=== PATIENT | female | born 1955 | race Caucasian/White ===

== ENCOUNTER 2018-08-30 18:47 | Emergency (ER) | payer OTHER, SELFPAY ==
[2018-08-30 18:49] VITALS: BP 167/81; PULSE 68; RESP 15; TEMP 36.7; O2SAT 99; BMI 31.6
[2018-08-30 19:57] VITALS: O2SAT 99
--- NOTE | 2018-08-30 20:01 | CT_ITS ---
STUDY: CT BRAIN WITHOUT CONTRAST REASON FOR EXAM: Female, 63 years old. Fall, LOC. RADIATION DOSAGE (If Supplied By Facility): CTDIvol = ( 44.99 ) mGy, DLP = ( 779.24 ) mGycm TECHNIQUE: Transaxial CT imaging of the brain was performed without administration of intravenous contrast material. Individualized dose optimization techniques were used for this CT. COMPARISON: None. FINDINGS: Normal soft tissue structures. Normal calvarium. Normal size ventricles and extra-axial spaces for the patient's age. Normal white matter tracts of the cerebral hemispheres. Normal basal ganglia and thalami. Normal brainstem. Normal cerebellum. There is no intracranial hemorrhage. There are no findings of an acute ischemic infarction. Normal visualized paranasal sinuses. CT/Brain/Head without Contrast IMPRESSION: Normal unenhanced CT scan of the brain. Electronically Signed: Malaika Reid MD at 20:41 EST Tel , Service support ,
--- NOTE | 2018-08-30 20:01 | CT_ITS ---
STUDY: CT CERVICAL SPINE WITHOUT CONTRAST REASON FOR EXAM: Female, 63 years old. Fell, LOC. RADIATION DOSAGE (If Supplied By Facility): CTDIvol = ( 12.18 ) mGy, DLP = ( 219.99 ) mGycm TECHNIQUE: High resolution transaxial imaging was performed without contrast material. Sagittal and coronal images were reconstructed. Individualized dose optimization techniques were used for this CT. COMPARISON: None FINDINGS: Normal craniovertebral junction. Normal anterior atlantoaxial articulation. Normal odontoid process. Normal cervical lordosis. Normal vertebral bodies and posterior osseous elements. C2-3: Normal endplates. Normal disc height and morphology. Normal central canal and intervertebral neuroforamina. Left facet hypertrophy. C3-4: Normal endplates. Normal disc height and morphology. Normal central canal and intervertebral neuroforamina. Marked left facet hypertrophy. C4-5: Normal endplates. Normal disc height and morphology. Normal central canal and intervertebral neuroforamina. Marked left facet hypertrophy. C5-6: Normal endplates. Normal disc height and morphology. Normal central canal and intervertebral neuroforamina. Moderate right facet hypertrophy. C6-7: Normal endplates. Normal disc height and morphology. Normal central canal and intervertebral neuroforamina. C7-T1: Normal endplates. Normal disc height and morphology. Normal central canal and intervertebral neuroforamina. Normal visualized soft tissue structures. CT/Spine Cervical without Contras IMPRESSION: 1. No evidence of trauma. 2. Mild degenerative changes of the cervical spine. Electronically Signed: Malaika Reid MD at 20:50 EST Tel , Service support ,
[2018-08-30 21:06] VITALS: BP 154/85; PULSE 70; RESP 17; O2SAT 98
--- NOTE | 2018-08-30 21:08 | ED.VISSUMM ---
- ER Visit Summary Date of Service: 08/30/18 Chief Complaint: Head injury History of Present Illness: The patient is a [address] Patino. She reports that today she was tripped by her dog. She fell backwards and hit her head. She had loss of consciousness for a brief period of time. She is amnestic to the events shortly thereafter. Patient reports that she had a nosebleed for approximately 15 minutes from the left. She denies any pain to her nose. She reports she has a headache is 3 out of 10 severity. She denies any face, neck, back, shoulder, wrist, pain. On review of systems she does report that she is nauseated. She has not vomited. Physical Examination: Vitals: Stable. Afebrile. Head: Atraumatic. Nose. No septal hematoma. No blood or clot present in her nares. She has no pain over the bridge of her nose. Neck: Mild tenderness palpation approximately C5-C7. Full ROM without difficulty. Back: No vertebral tenderness. General: A&O x 3. NAD. Cardiovascular exam: Regular rate and rhythm, no murmur, rub or gallop. Respiratory exam: Chest nontender. No crepitus. Clear to auscultation bilaterally. No wheezes or stridor. Abdominal exam: Soft, nontender, nondistended, normal bowel sounds. No pain in RUQ or LUQ specifically. No peritoneal signs. Extremity: Atraumatic. No pain with range of motion. Test Results: CT brain shows no acute disease. No intracranial hemorrhage. CT C-spine shows mild degenerative changes. Emergency Department Course and Treatment: Patient refused pain or nausea medications. She is resting comfortably. Treatment Plan: Patient be discharged with concussion precautions. Instructed to follow-up her primary care physician 1 week for another exam. Return to the emergency department for any worsening symptoms. Disposition: To home in improved and stable condition. Impression: 1. Fall. 2. Concussion. 3. Cervical strain. This note was generated with [employer] dictation software. It may contain incorrect words, spelling, and punctuation that were not noted in review of the chart prior to signing ED Disposition - Plan for ED Patient: Disposition: Home or Assisted Living Instructions: ED Concussion Referrals: Prince Patino MD [Primary Care Provider] - 1 Week
== END 2018-08-30 21:36 | disposition home or self-care (01) ==
LOC: ED 20:24
PROVIDERS: Emergency Provider Emergency Medicine
DX: S06.0X1A Concussion with loss of consciousness of 30 minutes or less, initial encounter (principal); S16.1XXA Strain of muscle, fascia and tendon at neck level, initial encounter; W01.0XXA Fall on same level from slipping, tripping and stumbling without subsequent striking against object, initial encounter; Y93.9 Activity, unspecified; Y92.89 Other specified places as the place of occurrence of the external cause; Y99.9 Unspecified external cause status; I10 Essential (primary) hypertension; E78.00 Pure hypercholesterolemia, unspecified
CPT/HCPCS: 70450; 72125; 99282

== ENCOUNTER 2019-04-18 13:43 | Emergency (ER) | payer OTHER, SELFPAY ==
[2019-04-18 13:44] VITALS: BP 138/55; PULSE 85; RESP 20; TEMP 36.7; O2SAT 97; BMI 33.0
--- NOTE | 2019-04-18 13:59 | EKG12_ITS ---
Test Reason : CP Blood Pressure : / mmHG Vent. Rate : 073 BPM Atrial Rate : 073 BPM P-R Int : 146 ms QRS Dur : 080 ms QT Int : 404 ms P-R-T Axes : 035 053 070 degrees QTc Int : 445 ms Normal sinus rhythm Normal ECG Confirmed by PRASANTH COONEY, FERNANDO ([id number]), editorial assistant BRIDGET GUZMAN ([id number]) on 04/20/2019 8:44:07 AM Referred By: DONALDO Confirmed By:FERNANDO RADER MD
--- NOTE | 2019-04-18 13:59 | RAD_ITS ---
STUDY: X-RAY CHEST REASON FOR EXAM: Female, 64 years old. 2 hour history of left-sided chest pain. TECHNIQUE: Single AP portable view of the chest. COMPARISON: None. FINDINGS: EKG electrodes are seen. Hyperinflation. There is no demonstrated pleural abnormality. There is borderline cardiomegaly. Normal mediastinum and nagi. Normal visualized pulmonary arteries. Normal visualized aortic arch and descending thoracic aorta. There are diffuse degenerative changes of the visualized thoracic spine. There is degenerative osteoarthritis of the bilateral shoulders. There is no demonstrated abnormality of the visualized soft tissue structures of the upper abdomen. RAD/Chest 1 View (Portable) IMPRESSION: Hyperinflation. The lungs are clear. Electronically Signed: Aramis Santiago, at 14:35 EDT , Service support ,
[2019-04-18 14:20] VITALS: BP 129/56; PULSE 67; RESP 18; O2SAT 97
[2019-04-18 14:24] LABS: Absolute Lymphocyte Count 1.43 X10^3/uL (0.83-4.51); Absolute Neutrophil Count 4.8 X10^3/uL (2.0-7.7); Basophil# 0.07 X10^3/uL; Eosinophils% 4.2 % (0-5); Lymphocyte # 1.43 X10^3/ul (4.0); Lymphocyte % 20.3 % (19-41); Mean Corp Hgb Conc 32.5 g/dL (32-36); Mean Corpuscular Volume 92.2 fL (81-99); Mean Platelet Vol. 9.5 fl (6.2-12.0); Monocyte% 5.7 % (0-10); NRBC Flagged by Analyzer 0 % (0-5); Neutrophil # 4.82 X10^3/uL (2.7-7.7); Neutrophil % 68.2 % (47-70); Platelet Count 285 K/mm3 (150-450); RBC Distribution Width SD 40.9 fl (35.1-43.9); Red Blood Count 4.34 M/mm3 (4.2-5.4); White Blood Count 7.1 K/mm3 (4.4-11.0)
--- NOTE | 2019-04-18 14:25 | ED.DCSUM_ITS ---
- ER Visit Summary Date of Service: 04/18/19 Chief Complaint: Chest pain History of Present Illness: The patient is a 64 F who presents with chest pain. Started 2 hours ago. She describes a sharp pain on the left side of her chest. It radiated straight into her back on the left side of her chest. Nitroglycerin and aspirin with EMS made better. Nothing made it worse. She does have associated dyspnea with this. She has a history of mitral valve prolapse and had a stress test 11 years ago and a cardiac catheterization in neither 2002 or 2003 that was clean. Denies any other recent illnesses. Currently her symptoms are improved Physical Examination: Vital signs reviewed. HEENT exam unremarkable. Heart is regular rate and rhythm without murmurs. Lungs are clear to auscultation. Her chest is nontender to palpation. Abdomen is soft and nontender. Extremities reveal no edema. Peripheral pulses are equal. Skin exam normal. Neurologic exam normal. Test Results: Chest x-ray shows hyperinflation. EKG was sinus rhythm with a rate of 73. No ST changes. Laboratory studies are normal. Emergency Department Course and Treatment: Patient was given aspirin and nitroglycerin by EMS. Her troponin is normal. Her chest x-ray and EKG is also unremarkable. I feel this is likely noncardiac. Patient be given a dose of Toradol here. Her MIGUEL score is 0. Patient will be discharged home to use NSAIDs for pain. She will follow-up with her PCP Treatment Plan: [] Disposition: Discharge Impression: Chest pain noncardiac This note was generated with [employer] dictation software. It may contain incorrect words, spelling, and punctuation that were not noted in review of the chart prior to signing ED Disposition - Plan for ED Patient: Referrals: Prince Patino MD [Primary Care Provider] -
[2019-04-18 14:35] LABS: Anion Gap 6 (5-15); BUN 10 mg/dL (7-18); BUN/Creat Ratio 13.9 RATIO (10-20); Calcium,Total 9.1 mg/dL (8.5-10.1); Chloride 108 mmol/L (98-107); Creatinine, Serum 0.72 mg/dL (0.55-1.02); EST Glomerular Filtration Rate 87 mL/min (>60); Est Glom Filt Rate - Afr Amer 106 mL/min (>60); Estimated Creatinine Clearance 94.77 ml/min; Glucose 137 mg/dL (74-106); Sodium Level 140 mmol/L (136-145)
--- NOTE | 2019-04-18 15:10 | ED.DEP ---
ED Disposition - Plan for ED Patient: Disposition: Home or Assisted Living Instructions: CHEST PAIN, Uncertain Cause Prescriptions: Naproxen [Naprosyn] 500 mg PO BID PRN #20 tab Prescription Printed Referrals: Prince Patino MD [Primary Care Provider] -
[2019-04-18] MEDS: Ketorolac 30 MG/ML Syringe IV (16:43)
--- NOTE | 2019-04-18 16:48 | ED.RN ---
pt to remain in the ed while awaiting results of venous doppler. if positive. pt to be transferred.
[2019-04-18 17:23] VITALS: BP 145/60; PULSE 81; RESP 20; O2SAT 97
--- NOTE | 2019-04-18 17:24 | ED.RN ---
THIS NURSE REVIEWED D/C INSTRUCTIONS WITH PT. PT VERBALIZED UNDERSTANDING OF INSTRUCTIONS. IV D/C. IV CATHETER INTACT. PT TOLERATED WELL. PT DENIES FURTHER NEEDS OR QUESTIONS AT THIS TIME. PT AMBULATES FROM ROOM ON OWN WITHOUT ASSISTANCE FROM STAFF
== END 2019-04-18 17:26 | disposition home or self-care (01) ==
PROVIDERS: Emergency Provider Emergency Medicine
DX: R07.89 Other chest pain (principal); R06.00 Dyspnea, unspecified; I34.1 Nonrheumatic mitral (valve) prolapse; I10 Essential (primary) hypertension; E78.00 Pure hypercholesterolemia, unspecified; M81.0 Age-related osteoporosis without current pathological fracture; Z79.899 Other long term (current) drug therapy
CPT/HCPCS: 71045; 80048; 84484; 85025; 93005; 96374; 99285; J7030; A4216

== ENCOUNTER → 2019-04-27 11:01 | Outpatient (CLI) | payer OTHER, SELFPAY ==
[2019-04-18 13:44] VITALS: BMI 33.0
--- NOTE | 2019-04-27 11:04 | CT_ITS ---
STUDY: CT ABDOMEN AND PELVIS WITHOUT CONTRAST REASON FOR EXAM: Female, 64 years old. Gross hematuria. RADIATION DOSAGE (If Supplied By Facility): CTDIvol = ( 10.7 ) mGy, DLP = ( 476.55 ) mGycm TECHNIQUE: Transaxial images were obtained from the dome of the diaphragm to the symphysis pubis without oral contrast, and without intravenous contrast. Sagittal and coronal images were reconstructed. Individualized dose optimization techniques were used for this CT. COMPARISON: None. FINDINGS: The visualized lung bases are unremarkable. The visualized portions of the heart are within normal limits. Normal liver. Normal gallbladder and extrahepatic biliary system. Normal spleen. Normal pancreas. Normal bilateral adrenal glands. There are 3 punctate calcifications in the upper pole calyx of the right kidney. There is a 4 mm calculus in the proximal portion of the left ureter causing a mild degree of left hydronephrosis and hydroureter. Normal visualized stomach. Normal small intestine. There are multiple colonic diverticula consistent with diverticulosis. There is non-visualization of the appendix. There is diffuse atherosclerotic calcification of the abdominal aorta, without a demonstrated aneurysm. Normal inferior vena cava. Normal retroperitoneum. Normal urinary bladder. There is absence of the uterus consistent with a prior hysterectomy. There is a small umbilical hernia containing fat. Normal osseous structures. CT/Abdomen/Pelvis without Cont IMPRESSION: 4 mm calculus in the proximal portion of the left ureter causing mild degree of left hydronephrosis. Electronically Signed: Aramis Santiago, at 12:19 EDT , Service support ,
== END ==
PROVIDERS: Referring Provider Nurse Practitioner Adult Health; Visit Provider Nurse Practitioner Adult Health
DX: R31.0 Gross hematuria (principal); N20.0 Calculus of kidney
CPT/HCPCS: 74176

== ENCOUNTER 2019-05-13 10:23 | Day surgery (SDC) | payer OTHER, SELFPAY ==
--- NOTE | 2019-05-13 09:30 | RAD_ITS ---
STUDY: X-RAY - ABDOMEN/PELVIS REASON FOR EXAM: Female, 64 years old. Bilateral flank pain. History of left kidney stone. TECHNIQUE: Single AP view of the abdomen / pelvis. COMPARISON: None. FINDINGS: I suspect a 3.3 mm calculus in the midportion of the left ureter overlying the transverse processes of the L3 vertebrae. RAD/Abdomen Single View IMPRESSION: I suspect a 3.3 mm calculus in the midportion of the left ureter overlying the transverse processes of the L3 vertebrae. Electronically Signed: Aramis Santiago, at 13:16 EST , Service support ,
[2019-05-13 11:38] VITALS: BP 119/46; PULSE 62; RESP 16; TEMP 36.8; O2SAT 99; BMI 30.3
--- NOTE | 2019-05-13 12:21 | PCM.DC ---
- Discharge Diagnoses Current Active Problems: right kidney stones Reason(s) for Visit for Discharge Instructions: s/p Right ESWL and stent You will use the following diet at home:: No restrictions, Regular Your food should be the consistency of: Regular Discharge Activity: Return to Normal Activity, No Restrictions Suture Line Care: Avoid Pulling/Pushing, Avoid Pinching/Bending Allergies/Adverse Reactions: Allergies latex Allergy (Verified 05/02/19 14:23) Rash Penicillins Allergy (Verified 05/02/19 13:49) Hives Sulfa (Sulfonamide Antibiotics) Allergy (Verified 05/02/19 13:49) Other cefuroxime [From Ceftin] Adverse Reaction (Verified 05/02/19 13:49) Nausea/Vom/Diarrhea levofloxacin Adverse Reaction (Verified 05/13/19 11:30) Pain in joints omeprazole [From Prilosec] Adverse Reaction (Verified 05/02/19 13:50) Diarrhea Medications to take at Discharge Atenolol [Tenormin (beta sydni)] 50 mg PO QHS 08/30/18 Simvastatin 20 mg PO QHS 08/30/18 Acetaminophen [Tylenol Extra Strength] 500 - 1,000 mg PO Q6H PRN PRN 05/02/19 Alendronate Sodium [Fosamax] 70 mg PO QWEEK 05/02/19 Biotin 10,000 mcg PO DAILY 05/02/19 Calcium Carbonate [Tums Ultra Strength] 1 tab PO PRN PRN 05/02/19 Calcium Citrate/Vitamin D3 [Citracal + D Maximum Caplet] 1 ea PO TID 05/02/19 Cholecalciferol (Vitamin D3) [Vitamin D3] 2,000 unit PO DAILY 05/02/19 Cinnamon Bark [Cinnamon] 1,500 mg PO DAILY 05/02/19 DiphenhydrAMINE [Benadryl] 50 mg PO QHS 05/02/19 Docusate Sodium 100 mg PO TID 05/02/19 Esomeprazole Magnesium [Nexium 24Hr] 20 mg PO PRN PRN 05/02/19 Glucosam/Riley-Msm1/C/Domingo/Bosw [Osteo Bi-Flex Caplet] 1 ea PO BID 05/02/19 Hydrochlorothiazide 12.5 mg PO DAILY 05/02/19 Ibuprofen 200 mg PO PRN PRN 05/02/19 Milk Thistle 175 mg PO DAILY 05/02/19 Multivit,Stress Formula/Zinc [Stress Formula with Zinc Tab] 1 ea PO DAILY 05/02/19 Naproxen [Naprosyn] 500 mg PO BID PRN PRN 05/02/19 Simethicone [Gas-X] 125 mg PO PRN PRN 05/02/19 Vitamin D3/Vitamin K2 (Mk4) [K2 Plus D3 Tablet] 1 ea PO DAILY 05/02/19 Cephalexin [Keflex] 500 mg PO Q8 #12 cap 05/13/19 Hydrocodone/Acetaminophen [[place] 5-325 Tablet] 1 ea PO Q4H PRN PRN 5 Days #14 tab 05/13/19 The following prescriptions were given: Cephalexin [Keflex] 500 mg PO Q8 #12 cap Prescription Printed Hydrocodone/Acetaminophen [[place] 5-325 Tablet] 1 ea PO Q4H PRN PRN 5 Days #14 tab PRN Reason: Pain Score 1-10 Prescription Printed Primary Care Physician: Prince Patino MD [Primary Care Provider] - Test Results: Test results from this visit will be discussed in further detail at your follow-up appointment, if applicable. Please Follow Up With: Tena Cheema Dr's PATIENT SUPPORT ASSISTANT When: 10days with NATALIE
[2019-05-13] MEDS: Lactated Ringers 1,000 ML 100 ML IV (12:27)
--- NOTE | 2019-05-13 13:10 | OP.PCM_ITS ---
Report of Operation Date of Procedure: 05/13/19 Pre-Operative Diagnosis: Right kidney stone status post first stage ESWL p resents for second stage treatment Post-Operative Diagnosis: Same Surgery/Procedure Performed:: Right extracorporeal shockwave lithotripsy second stage treatment Description of Surgical Findings:: 64-year-old female with a stone in the right kidney status post stent placement a few weeks ago she underwent shockwave lithotripsy for large stone in the right kidney which broke up fairly well. KUB today demonstrates multiple fragments still in the right kidney and she will need another treatment today so she is going to go second stage shockwave lithotripsy. First stage was fairly successful as multiple stone fragments were broken up the small pieces and working to treat the remaining fragments today as possible she may need more than one treatment remaining. Patient was taken back to the operating room after smooth induction of general anesthesia she was placed supine on the table and then placed supine on the table we then used the lithotripter table to find the stones in the right kidney multiple stones were located in the right kidney the stent was still in place we used fluoroscopy to identify the stone location and then we delivered shockwave lithotripsy the stones at a rate of 90 power up to 7. A total of 3000 shockwaves delivered to multiple stone fragments in the right kidney under fluoroscopic guidance making sure that the stones were the F2 focal point the entire time at the end of the treatment cycle. Patient anesthetic was reversed to take back to PACU in good condition and will see her back in 10 days with a x-ray to see if she needs any more treatment. Type of Anesthesia:: General Drains: stent right side - Admit VTE Documentation VTE Present on Admission: No VTE Mechan Device Prophylaxis: SCD's
[2019-05-13] MEDS: Ciprofloxacin 400 MG/200 ML BAG 200 MG IV (13:17)
--- NOTE | 2019-05-13 14:21 | PCM.OPRPT ---
Report of Operation Date of Procedure: 05/13/19 Pre-Operative Diagnosis: Left proximal ureteral calculi Post-Operative Diagnosis: Same Surgery/Procedure Performed:: Left extracorporeal shockwave lithotripsy Description of Surgical Findings:: 64-year-old female was found to have a stone in the proximal left ureter on CAT scan which was causing pain and hematuria because of this we have elected to treat the stone with shockwave lithotripsy to understands that the possible stone may not break, she may need more than one procedure, she may need a stent. She understands the stone may only partially break and may need more treatments. Patient was taken back to the operating room at the smooth induction of anesthesia she was placed supine on the table we then found the stone under fluoroscopy using the fluoroscope we rotated the fluoroscope around using coagulation technique we identified the stone in the proximal left ureter and then started shockwave lithotripsy. A total of 3000 shockwaves were delivered to the stone at a rate of 90 power from 7 to 9 kV at the end of the treatment cycle the stone to change significantly with fragments spread along the course of the ureter and it broken up very nicely. Decided not to leave the stent she hopefully will pass remaining fragments we will see her back in about 10 days with an x-ray. Type of Anesthesia:: General Drains: none - Admit VTE Documentation VTE Present on Admission: No VTE Mechan Device Prophylaxis: SCD's
[2019-05-13 14:37] VITALS: BP 119/46; BP 144/63; PULSE 69; RESP 16; TEMP 36.1; O2SAT 98
[2019-05-13 14:45] VITALS: BP 119/46; BP 135/58; PULSE 68; RESP 16; O2SAT 98
[2019-05-13 14:54] VITALS: BP 119/46; BP 132/68; PULSE 69; RESP 16; TEMP 36.2; O2SAT 98
[2019-05-13] MEDS: oxyCODONE 5 MG Tablet PO (15:17)
[2019-05-13 16:34] VITALS: BP 119/46; BP 139/57; PULSE 81; RESP 16; TEMP 36.4; O2SAT 100
== END 2019-05-13 16:35 | disposition home or self-care (01) ==
LOC: SDC 10:40 → AC 10:49
PROVIDERS: Referring Provider Urology; Visit Provider Urology
PROC: (CPT 50590; principal; 2019-05-13 12:20)
DX: N20.1 Calculus of ureter (principal); Z87.442 Personal history of urinary calculi; R31.0 Gross hematuria; R10.9 Unspecified abdominal pain; K21.9 Gastro-esophageal reflux disease without esophagitis; I10 Essential (primary) hypertension; Z87.891 Personal history of nicotine dependence
CPT/HCPCS: 00873; 50590; 74018; J7120; J0744; J2405

== ENCOUNTER → 2019-05-23 10:58 | Outpatient (CLI) | payer OTHER, SELFPAY ==
[2019-05-13 11:38] VITALS: BMI 30.3
--- NOTE | 2019-05-23 11:02 | RAD_ITS ---
STUDY: X-RAY - ABDOMEN/PELVIS REASON FOR EXAM: Female, 64 years old. Follow-up of left-sided kidney stones TECHNIQUE: 2 frontal views of the abdomen were performed COMPARISON: 13 May 2019 FINDINGS: Normal visualized lung bases. There is an unremarkable bowel gas pattern. There is no demonstrated free abdominal air. The visualized liver, spleen and kidneys are grossly normal in size and morphology. Normal soft tissue structures. Normal visualized osseous structures. RAD/Abdomen Single View IMPRESSION: Unremarkable abdomen. Nonvisualization of the left calculus, this is as of unclear significance, either passed calculus or technical nonvisualization. Electronically Signed: Josh Naik, at 19:21 EST Tel , Service support ,
== END ==
PROVIDERS: Referring Provider Nurse Practitioner Adult Health; Visit Provider Nurse Practitioner Adult Health
DX: N20.0 Calculus of kidney (principal)
CPT/HCPCS: 74018

== ENCOUNTER → 2020-05-14 15:40 | Outpatient (CLI) | payer OTHER, SELFPAY | PROVIDERS: Referring Provider Nurse Practitioner Adult Health; Visit Provider Nurse Practitioner Adult Health | DX: N20.0 Calculus of kidney (principal) ==

== ENCOUNTER → 2020-05-15 16:09 | Outpatient (CLI) | payer OTHER, SELFPAY ==
--- NOTE | 2020-05-15 16:14 | RAD_ITS ---
STUDY: X-RAY - ABDOMEN/PELVIS REASON FOR EXAM: Female, 65 years old. RIGHT SIDE KIDNEY STONE CHECK UP TECHNIQUE: Single AP view of the abdomen / pelvis. COMPARISON: 05/23/2019 FINDINGS: Normal visualized lung bases. There is an unremarkable bowel gas pattern. The visualized liver, spleen and kidneys are grossly normal in size and morphology. Normal soft tissue structures. Normal visualized osseous structures. RAD/Abdomen Single View IMPRESSION: Normal x-ray examination of the abdomen and pelvis. Electronically Signed: Dustin Pedersen MD at 16:30 EST Tel , Service support ,
== END ==
PROVIDERS: Referring Provider Nurse Practitioner Adult Health; Visit Provider Nurse Practitioner Adult Health
DX: N20.0 Calculus of kidney (principal)
CPT/HCPCS: 74018

== ENCOUNTER → 2020-07-27 11:14 | Outpatient (CLI) | payer OTHER, SELFPAY ==
--- NOTE | 2020-07-27 11:31 | RAD_ITS ---
STUDY: X-RAY - RIGHT FOOT CLINICAL: Female, 65 years old. right foot pain, swollen all over x 2 days, worse yesterday -- on and off pain x 2 days TECHNIQUE: 3 view(s) of the foot. COMPARISON: None. FINDINGS: No acute fracture, dislocation or osseous destruction. Osteopenia. Mild multiregional joint space narrowing terminating at the distal interphalangeal joints and first metatarsophalangeal joint. Plantar spur. Achilles enthesophyte. Mild dorsal spurring. Small periarticular calcifications adjacent the first and third metatarsophalangeal joints. Diffuse soft tissue swelling. RAD/Foot min 3 Views IMPRESSION: Right foot acutely intact Degenerative changes, as above Diffuse soft tissue swelling Electronically Signed: Lee Valerio DO at 11:56 EST Tel , Service support ,
[2020-07-27 11:38] LABS: Absolute Lymphocyte Count 1.44 X10^3/uL (0.83-4.51); Basophil# 0.06 X10^3/uL; Eosinophil# 0.28 X10^3/uL; Eosinophils% 4.5 % (0-5); Hematocrit 42.7 % (37-47); Hemoglobin 13.2 g/dL (12.0-15.0); Lymphocyte # 1.44 X10^3/ul (4.0); Mean Corp Hgb Conc 30.9 g/dL (32-36); Mean Corpuscular Hgb 28.4 pg (27.0-32.0); Mean Platelet Vol. 9.6 fl (6.2-12.0); Monocyte# 0.45 X10^3/uL; Monocyte% 7.2 % (0-10); NRBC Flagged by Analyzer 0 % (0-5); Neutrophil # 4.02 X10^3/uL (2.7-7.7); Platelet Count 307 K/mm3 (150-450); RBC Distribution Width CV 12.2 % (11.6-14.6); RBC Distribution Width SD 41.1 fl (35.1-43.9); Red Blood Count 4.64 M/mm3 (4.2-5.4); White Blood Count 6.3 K/mm3 (4.4-11.0)
== END ==
PROVIDERS: PCP Nurse Practitioner Family; Referring Provider Nurse Practitioner Family; Visit Provider Nurse Practitioner Family
DX: M79.671 Pain in right foot (principal)
CPT/HCPCS: 36415; 73630; 85025

== ENCOUNTER → 2020-08-09 13:01 | Outpatient (CLI) | payer OTHER, SELFPAY ==
--- NOTE | 2020-08-09 13:09 | RAD_ITS ---
STUDY: X-RAY - PELVIS AND LEFT HIP REASON FOR EXAM: Female, 65 years old. HIP PAIN -- FELL IN MAY TECHNIQUE: 3 views of the pelvis and hip. COMPARISON: None. FINDINGS: There is a non-specific bowel gas pattern. Normal visualized soft tissue structures. Normal bilateral iliac wings, sacroiliac joints and visualized sacrum. Normal bilateral superior and inferior pubic rami. Normal pubic symphysis. Normal bilateral ischial tuberosities. Normal visualized femoral head. Normal acetabulum. Normal hip joint. RAD/HIP, UNI W/ Pelvis 2-3 Views IMPRESSION: Normal x-ray examination of the pelvis and hip. Electronically Signed: Dustin Pedersen MD at 6:49 EST Tel , Service support ,
--- NOTE | 2020-08-09 13:17 | RAD_ITS ---
STUDY: X-RAY - RIGHT KNEE REASON FOR EXAM: Female, 65 years old. Chronic knee pain and swelling. TECHNIQUE: 3 view(s) of the knee. COMPARISON: None. FINDINGS: Generalized osteopenia. Normal visualized distal femur. Normal visualized proximal tibia and fibula. Normal proximal tibiofibular articulation. Mild arthrosis of the medial compartment. Mild arthrosis of the lateral femorotibial compartment with osteophyte formation. Mild arthrosis of the patellofemoral compartment. The soft tissue structures are unremarkable. RAD/Knee 3 Views IMPRESSION: Osteopenia with tricompartmental arthrosis. No acute finding. Electronically Signed: Max Tracey MD at 16:16 EST , Service support ,
--- NOTE | 2020-08-09 13:27 | VDLE_ITS ---
Reason For Study: Edema RIGHT GSV is normal. CFV is compressible, spontaneous, phasic, competent and demonstrates normal augmentation. FV is compressible, spontaneous, phasic, competent and demonstrates normal augmentation. POP V is compressible, spontaneous, phasic, competent and demonstrates normal augmentation. T/P Trunk is compressible. PTV is compressible. RT PerV is compressible. Procedure This is a venous duplex using B-mode, color flow and spectral Doppler. Exam performed in department. A preliminary report was called and/or faxed to Daryn. Interpretation Summary Deep veins of the right lower extremity are patent and compressible segmentally. There is no evidence of right lower extremity deep vein thrombosis. Valvular competence appears intact within the proximal deep venous system on the right . The right great saphenous vein appears patent and compressible segmentally. Ordering Physician: Thomas Stearns Referring Physician: Thomas Stearns Performed By: Pam Red RVT
== END ==
PROVIDERS: PCP Nurse Practitioner Family; Referring Provider Nurse Practitioner Family; Visit Provider Nurse Practitioner Family
DX: R60.0 Localized edema (principal); M25.561 Pain in right knee; G89.29 Other chronic pain; M25.552 Pain in left hip
CPT/HCPCS: 73502; 73562; 93971

== ENCOUNTER → 2020-09-06 16:45 | Outpatient (CLI) | payer OTHER, SELFPAY ==
--- NOTE | 2020-09-06 17:13 | MRI_ITS ---
STUDY: MRI RIGHT MIDFOOT REASON FOR EXAM: Right foot and ankle pain since 07/24/2020, swelling, no specific injury. TECHNIQUE: Standardized fat and water weighted pulse sequences were obtained in all 3 orthogonal planes. COMPARISON: Radiographs 07/27/2020. FINDINGS: Normal talonavicular articulation. Normal calcaneocuboid articulation. Normal navicular-cuneiform articulations. Normal intercuneiform articulations. Normal first tarsometatarsal articulation. Normal Lisfranc ligament. Normal second and third tarsometatarsal articulations. Normal cuboid fourth and cuboid fifth tarsometatarsal articulation. Normal first through fifth metatarsi. There is arthrosis of the first metatarsophalangeal joint with small marginal osteophytes and chondral thinning (T1 sagittal image 21). There is a subchondral cyst in the lateral aspect of the second metacarpal head. Normal third through fifth metatarsophalangeal joints. Normal tibialis anterior tendon. Normal extensor hallucis longus tendon. Normal extensor digitorum longus tendons. Normal peroneus longus tendon and distal insertion. Normal peroneus brevis tendon and distal insertion. Normal intrinsic muscles of the mid and forefoot region. Normal extensor digitorum brevis muscle. There is edema in the dorsal and medial subcutis adipose space. There is an intermetatarsal neuroma of the second webspace (T1 series 5 image 32) measuring 0.4 cm in transverse dimension. MRI/Lower Ext/No Jt/w/o IMPRESSION: Arthrosis of the first metatarsophalangeal joint. Intermetatarsal neuroma of the second webspace. Edema in the subcutis adipose space. Electronically Signed: Seferino Lester MD at 11:27 EST Tel , Service support ,
== END ==
PROVIDERS: PCP Nurse Practitioner Family; Referring Provider Podiatrist Foot & Ankle Surgery; Visit Provider Podiatrist Foot & Ankle Surgery
DX: M25.571 Pain in right ankle and joints of right foot (principal)
CPT/HCPCS: 73718

== ENCOUNTER 2021-03-04 02:51 | Observation (INO) | payer OTHER, SELFPAY ==
[2021-03-04] VITALS (11 sets, daily range): BP systolic 107–157; BP diastolic 47–83; PULSE 74–107; RESP 15–20; TEMP 36.3–37; O2SAT 93–100; BMI 32.3
--- NOTE | 2021-03-04 02:57 | CT_ITS ---
We are attempting to reach an attending provider to discuss findings. An addendum with communication details will be sent when the communication is complete. HISTORY: Abdominal pain, history of kidney stones EXAMINATION: CT Abdomen And Pelvis W/O Contrast Injection TECHNIQUE: Helically acquired images were obtained of the abdomen and pelvis without oral or IV contrast. A radiation dose optimization technique was used for this scan. IV Contrast dosage and agent: None. Oral contrast: None. COMPARISON: Unenhanced CT abdomen and pelvis from 04/27/19 FINDINGS: LOWER CHEST: Minimal basilar atelectatic changes. Punctate calcified granuloma lateral right lung base. Small hiatal hernia. Heart normal size. LIVER: Stable small low-attenuation cyst within posterior right lobe of liver. GALLBLADDER AND BILIARY TREE: No calcified gallstones. No pericholecystic edema detected. No significant biliary ductal dilation. KIDNEYS AND URETERS: There are a few small right renal calyceal stones measuring up to 3 mm diameter. No ureteral stones identified. No hydroureteronephrosis. Mild chronic-appearing bilateral perinephric fat stranding. ADRENAL GLANDS: Non-enlarged. SPLEEN: Normal size without discrete mass. PANCREAS: No discrete mass or peripancreatic inflammation. BOWEL: Dilated and inflamed appendix is posterior to the cecum within right iliac fossa, measuring up to 15 mm diameter. There are calcified appendicoliths within proximal appendiceal lumen, largest measuring 9 mm diameter. No bowel obstruction. LYMPH NODES: No enlarged mesenteric or retroperitoneal lymph nodes. PERITONEUM: No free air or significant free fluid. No other fluid collection. VESSELS: Atherosclerotic calcifications with no abdominal aortic aneurysm. URINARY BLADDER: Unremarkable. REPRODUCTIVE ORGANS: Status post partial hysterectomy. No pelvic mass. ABDOMINAL WALL: No acute findings or significant hernia defect. BONES: Intact with no suspicious osseous lesion. CT/Abdomen/Pelvis without Cont IMPRESSION: 1. Appendicitis with no evidence of perforation. 2. Nonobstructing right nephrolithiasis. 3. Small hiatal hernia and other nonurgent findings within body of report. Individualized dose optimization techniques were used for this CT. at 0405 Reported and signed by: Scot Abdul MD Electronically Signed: Scot Abdul MD at 4:04 EDT Tel , Service support ,
--- NOTE | 2021-03-04 03:00 | EX.ED.DYSGE1 ---
HPI History of Present Illness Chief Complaint: Abd Pain Narrative Narrative: Patient presents with epigastric and periumbilical pain that started about 10 hours ago. She has also had 3-4 episodes of watery stool for the past month, this started after your antibiotic use. She has no fever or chills she has no lower abdominal pain. She has no back pain or tearing sensation. No urinary symptoms. No chest pain or shortness of breath. [facility] Medical History (Updated 03/04/21 @ 04:[address] Kory Alvarez MD) HTN (hypertension) Hyperlipemia Leaky heart valve Home Medications atenolol 50 mg PO QHS 08/30/18 [History Last Taken Unknown] simvastatin 20 mg PO QHS 08/30/18 [History Last Taken Unknown] acetaminophen 500 - 1,000 mg PO Q6H PRN PRN 05/02/19 [History Last Taken Unknown] alendronate 70 mg PO QWEEK 05/02/19 [History Last Taken Unknown] biotin 10,000 mcg PO DAILY 05/02/19 [History Last Taken Unknown] calcium carbonate 1 tab PO PRN PRN 05/02/19 [History Last Taken Unknown] calcium citrate-vitamin D3 1 ea PO TID 05/02/19 [History Last Taken Unknown] cholecalciferol (vitamin D3) 2,000 unit PO DAILY 05/02/19 [History Last Taken Unknown] cinnamon bark 1,500 mg PO DAILY 05/02/19 [History Last Taken Unknown] diphenhydramine HCl 50 mg PO QHS 05/02/19 [History Last Taken Unknown] docusate sodium 100 mg PO TID 05/02/19 [History Last Taken Unknown] esomeprazole magnesium 20 mg PO PRN PRN 05/02/19 [History Last Taken 05/13/19 07:30] shrlkwob-oyjd-qdk7-C-janis-bosw 1 ea PO BID 05/02/19 [History Last Taken Unknown] hydrochlorothiazide 12.5 mg PO DAILY 05/02/19 [History Last Taken Unknown] ibuprofen 200 mg PO PRN PRN 05/02/19 [History Last Taken Unknown] milk thistle 175 mg PO DAILY 05/02/19 [History Last Taken Unknown] multivit,stress formula-zinc 1 ea PO DAILY 05/02/19 [History Last Taken Unknown] simethicone 250 mg PO PRN PRN 05/02/19 [History Last Taken Unknown] vitamin D3-vitamin K2 (MK4) 1 ea PO DAILY 05/02/19 [History Last Taken Unknown] Allergy/AdvReac Type Severity Reaction Status Date / Time latex Allergy Rash Verified 03/04/21 02:52 Penicillins Allergy Hives Verified 03/04/21 02:52 Sulfa (Sulfonamide Allergy Other Verified 03/04/21 02:52 Antibiotics) cefuroxime [From Ceftin] AdvReac Nausea/Vom/ Verified 03/04/21 02:52 Diarrhea levofloxacin AdvReac Pain in Verified 03/04/21 02:52 joints omeprazole [From Prilosec] AdvReac Diarrhea Verified 03/04/21 02:52 Surgical History (Updated 03/04/21 @ 02:57 by Christiano Kaminski) S/P hysterectomy Social History Smoking Status: Former smoker ROS ROS ED ROS Narrative Past medical history: Reviewed, significant for hypertension, hypercholesterolemia, William's Medications: Reviewed Social history: Noncontributory Review of systems: All systems negative except as indicated General: No fever Eyes: No visual changes ENT: No upper airway congestion, normal voice Neck: No neck pain Cardiovascular: No chest pain Respiratory: No shortness of breath or cough Gastrointestinal: Acute abdominal pain with chronic diarrhea as in HPI Genitourinary: No dysuria Musculoskeletal: Denies myalgias no difficulty with ambulation Skin: No rash Neurological: No memory loss, confusion or any focal weakness Psych: No recent behavioral changes Hematologic: No easy bleeding or easy bruising EXAM Physical Exam Narrative Exam Narrative: Physical exam General: Patient appears relatively comfortable. Head: Normocephalic, Atraumatic Eyes: Conjunctiva not pale ENT: Moist mucous membranes Neck: Supple, Nontender, No lymphadenopathy Cardiovascular: Regular rate, Regular rhythm Respiratory: No distress, CTA bilaterally Abdomen: Soft, there is epigastric pain but also some periumbilical pain no specific pain in the right upper quadrant and Ruiz's is negative. There is some nonspecific lower abdominal pain it is not specifically at McBurney's.. No guarding or rebound. Back: Nontender, Normal Inspection. Negative for: CVA tenderness Extremities: Nontender, No edema Skin: Normal color, No rash Neurological: Alert, Normal Strength, Normal Sensation Psychological: Normal affect Const Vital Signs: 03/04/21 02:52 Temperature 97.6 F L Temperature Source Oral Pulse Rate 84 Respiratory Rate 20 H Blood Pressure 157/53 H Blood Pressure Mean 87 Pulse Ox 98 Oxygen Delivery Method Room Air MDM MDM MDM Narrative Medical decision making narrative: Patient is found to have leukocytosis and appendicitis on CT, on reevaluation her pain did migrate to the right lower abdomen but it did improve with analgesics. I will start her antibiotics and call surgery. Lab Data Labs: Laboratory Results - last 24 hr 03/04/21 03/04/21 03:11 03:11 WBC 14.2 H RBC 4.37 Hgb 13.0 Hct 39.3 MCV 89.9 MCH 29.7 MCHC 33.1 RDW Std Deviation 41.0 RDW Coeff of Suzanne 12.4 Plt Count 327 MPV 9.7 Immature Gran % (Auto) 0.600 Neut % (Auto) 90.9 H Lymph % (Auto) 5.6 L [place] % (Auto) 2.4 Eos % (Auto) 0.1 Baso % (Auto) 0.4 Absolute Neuts (auto) 13.0 H Absolute Lymphs (auto) 0.79 L Nucleated RBC % 0 Sodium 136 Potassium 3.6 Chloride 100 Carbon Dioxide 26.0 Anion Gap 10 BUN 13 Creatinine 0.70 Estim Creat Clear Calc 92.93 Est GFR (MDRD) Af Amer 108 Est GFR (MDRD) Non-Af 89 BUN/Creatinine Ratio 18.5 Glucose 166 H Calcium 9.1 Total Bilirubin 0.50 AST 17 ALT 24 Alkaline Phosphatase 138 H Total Protein 7.5 Albumin 4.2 Globulin 3.3 Albumin/Globulin Ratio 1.3 Lipase 79 Radiography Diagnostic Testing: Radiology Impression Abdomen/Pelvis CT 03/04/21 02:57 IMPRESSION: 1. Appendicitis with no evidence of perforation. 2. Nonobstructing right nephrolithiasis. 3. Small hiatal hernia and other nonurgent findings within body of report. Individualized dose optimization techniques were used for this CT. at 0405 Reported and signed by: Scot Abdul MD Electronically Signed: Scot Abdul MD at 4:04 EDT Tel , Service support , Discharge Plan Triage Chief Complaint: Abd Pain ED Provider: Kory Alvarez Dx/Rx/DC Orders Clinical Impression: Acute appendicitis Prescriptions: No Action simvastatin 20 MG tablet 20 mg PO QHS RF: 0 atenolol 50 MG tablet 50 mg PO QHS RF: 0 milk thistle 500 MG capsule 175 mg PO DAILY RF: 0 alendronate 70 MG tablet 70 mg PO QWEEK RF: 0 simethicone 125 MG capsule 250 mg PO PRN PRN (Reason: reflux) RF: 0 acetaminophen 500 MG tablet 500 - 1,000 mg PO Q6H PRN PRN (Reason: Pain Or Fever) RF: 0 biotin 10,000 MCG capsule 10,000 mcg PO DAILY RF: 0 diphenhydramine HCl 25 MG capsule 50 mg PO QHS RF: 0 ibuprofen 200 MG tablet 200 mg PO PRN PRN (Reason: Pain Or Fever) RF: 0 docusate sodium 100 MG capsule 100 mg PO TID RF: 0 esomeprazole magnesium 20 MG capsule,delayed release(DR/EC) 20 mg PO PRN PRN (Reason: reflux) RF: 0 cinnamon bark 500 MG capsule 1,500 mg PO DAILY RF: 0 calcium carbonate 1,177 MG tablet,chewable 1 tab PO PRN PRN (Reason: reflux) RF: 0 hydrochlorothiazide 12.5 MG tablet 12.5 mg PO DAILY RF: 0 cholecalciferol (vitamin D3) 2,000 UNIT capsule 2,000 unit PO DAILY RF: 0 calcium citrate-vitamin D3 1 EACH tablet 1 ea PO TID RF: 0 multivit,stress formula-zinc 1 EACH tablet 1 ea PO DAILY RF: 0 keycstat-xhdh-yvx9-C-janis-bosw 1 EACH tablet 1 ea PO BID RF: 0 vitamin D3-vitamin K2 (MK4) 1 EACH tablet 1 ea PO DAILY RF: 0 Primary Care Provider: Thomas Stearns NP Referrals: Thomas Stearns [employer], [employer]-C [Primary Care Provider] - 2 Days Disposition Disposition: Acute Care [facility]
[2021-03-04] MEDS: Morphine 4 MG/ML Syringe IV ×2 (03:10→04:35)
[2021-03-04] MEDS: 0.9% Normal Saline 1,000 ML 1000 ML IV (03:10)
[2021-03-04] MEDS: Ondansetron 4 MG/2 ML Vial IV ×2 (03:10→04:27)
[2021-03-04 03:32] LABS: ALB/GLOB Ratio 1.3 RATIO (0.9-2.4); AST(SGOT) 17 U/L (15-37); Alanine Aminotransfer ALT/SGPT 24 U/L (13-56); Albumin, Serum 4.2 g/dL (3.2-5.0); Alkaline Phosphatase 138 U/L (45-117); Anion Gap 10 (5-15); BUN 13 mg/dL (7-18); BUN/Creat Ratio 18.5 RATIO (10-20); Calcium,Total 9.1 mg/dL (8.5-10.1); Chloride 100 mmol/L (98-107); EST Glomerular Filtration Rate 89 mL/min (>60); Est Glom Filt Rate - Afr Amer 108 mL/min (>60); Estimated Creatinine Clearance 92.93 ml/min; Globulin 3.3 g/dL (2.2-4.2); Glucose 166 mg/dL (74-106); Lipase 79 U/L (73-393); Potassium 3.6 mmol/L (3.5-5.1); Protein, Total 7.5 g/dL (6.4-8.2); Sodium Level 136 mmol/L (136-145)
[2021-03-04 03:44] LABS: Absolute Lymphocyte Count 0.79 X10^3/uL (0.83-4.51); Basophil# 0.05 X10^3/uL; Basophil% 0.4 % (0-1); Eosinophil# 0.01 X10^3/uL; Eosinophils% 0.1 % (0-5); Hematocrit 39.3 % (37-47); Lymphocyte # 0.79 X10^3/ul (0.83-4.51); Lymphocyte % 5.6 % (19-41); Mean Corp Hgb Conc 33.1 g/dL (32-36); Mean Corpuscular Hgb 29.7 pg (27.0-32.0); Mean Corpuscular Volume 89.9 fL (81-99); Mean Platelet Vol. 9.7 fl (6.2-12.0); Monocyte# 0.34 X10^3/uL; Monocyte% 2.4 % (0-10); NRBC Flagged by Analyzer 0 % (0-5); Neutrophil # 12.96 X10^3/uL (2.7-7.7); Neutrophil % 90.9 % (47-70); Platelet Count 327 K/mm3 (150-450); RBC Distribution Width CV 12.4 % (11.6-14.6); Red Blood Count 4.37 M/mm3 (4.2-5.4); White Blood Count 14.2 K/mm3 (4.4-11.0)
--- NOTE | 2021-03-04 04:24 | EKG12_ITS ---
Test Reason : DYSRYTHMIA Blood Pressure : / mmHG Vent. Rate : 075 BPM Atrial Rate : 075 BPM P-R Int : 162 ms QRS Dur : 084 ms QT Int : 404 ms P-R-T Axes : 057 055 070 degrees QTc Int : 451 ms Normal sinus rhythm Nonspecific ST and T wave abnormality Abnormal ECG Confirmed by ZENY COONEY, SRINIVASAN ([id number]), newspaper or periodical editor EZIO CONWAY ([id number]) on 03/05/2021 9:33:39 AM Referred By: Alma Delia Lake Confirmed By:SRINIVASAN MOURA MD
[2021-03-04 04:49] LABS: Mucous, Urine 0 SEEN /hpf (<or=2+); Red Blood Cells-Urine 0 SEEN /hpf (0-5)
[2021-03-04] MEDS: Ciprofloxacin 400 MG/200 ML BAG 200 MG IV (04:50)
[2021-03-04] MEDS: metroNIDAZOLE 500 MG/100 ML BAG 100 MG IV (04:56)
[2021-03-04 05:01] LABS: Color, Urine Yellow (Yellow); Glucose, Dipstick Normal (Normal); Leukocyte Esterase-Dipstick Negative /ul (Negative); Nitrite-Dipstick Negative (Negative); Occult Blood-Urine Negative /ul (Negative); Protein-Dipstick 30 mg/dl (Negative); Urine Bilirubin Dipstick Negative (Negative); Urine Clarity Clear (Clear); Urine Urobilinogen Normal (Normal)
--- NOTE | 2021-03-04 05:02 | HP.PCM.SX_ITS ---
HPI - General HPI Narrative CANDIS HERNANDEZ, is a 66 F who presents to the ER due to abdominal pain which did just moved to the right lower quadrant this morning. Patient's abdominal pain has been there since yesterday a.m. on work-up patient's white blood count 14.2, CT abdomen pelvis is consistent with acute appendicitis. Patient did admit to nausea and vomiting as well as anorexia. Patient states she had a colonoscopy about 10 years ago showed lymphocytic colitis which the diarrhea had improved since then but patient currently does have some diarrhea with this episode. [facility] Medical History (Updated 03/04/21 @ 04:[address] Kory Ovalle MD) HTN (hypertension) Hyperlipemia Leaky heart valve Home Medications atenolol 50 mg PO QHS 08/30/18 [History Last Taken Unknown] simvastatin 20 mg PO QHS 08/30/18 [History Last Taken Unknown] acetaminophen 500 - 1,000 mg PO Q6H PRN PRN 05/02/19 [History Last Taken Unknown] alendronate 70 mg PO QWEEK 05/02/19 [History Last Taken Unknown] biotin 10,000 mcg PO DAILY 05/02/19 [History Last Taken Unknown] calcium carbonate 1 tab PO PRN PRN 05/02/19 [History Last Taken Unknown] calcium citrate-vitamin D3 1 ea PO TID 05/02/19 [History Last Taken Unknown] cholecalciferol (vitamin D3) 2,000 unit PO DAILY 05/02/19 [History Last Taken Unknown] cinnamon bark 1,500 mg PO DAILY 05/02/19 [History Last Taken Unknown] diphenhydramine HCl 50 mg PO QHS 05/02/19 [History Last Taken Unknown] docusate sodium 100 mg PO TID 05/02/19 [History Last Taken Unknown] esomeprazole magnesium 20 mg PO PRN PRN 05/02/19 [History Last Taken 05/13/19 07:30] dhgfxuis-eljq-rly7-C-janis-bosw 1 ea PO BID 05/02/19 [History Last Taken Unknown] hydrochlorothiazide 12.5 mg PO DAILY 05/02/19 [History Last Taken Unknown] ibuprofen 200 mg PO PRN PRN 05/02/19 [History Last Taken Unknown] milk thistle 175 mg PO DAILY 05/02/19 [History Last Taken Unknown] multivit,stress formula-zinc 1 ea PO DAILY 05/02/19 [History Last Taken Unknown] simethicone 250 mg PO PRN PRN 05/02/19 [History Last Taken Unknown] vitamin D3-vitamin K2 (MK4) 1 ea PO DAILY 05/02/19 [History Last Taken Unknown] Allergy/AdvReac Type Severity Reaction Status Date / Time latex Allergy Rash Verified 03/04/21 02:52 Penicillins Allergy Hives Verified 03/04/21 02:52 Sulfa (Sulfonamide Allergy Other Verified 03/04/21 02:52 Antibiotics) cefuroxime [From Ceftin] AdvReac Nausea/Vom/ Verified 03/04/21 02:52 Diarrhea levofloxacin AdvReac Pain in Verified 03/04/21 02:52 joints omeprazole [From Prilosec] AdvReac Diarrhea Verified 03/04/21 02:52 Surgical History (Updated 03/04/21 @ 02:57 by Christiano Kaminski) S/P hysterectomy Social History Smoking Status: Former smoker Vital Signs Vital Signs Vital Signs: 03/04/21 02:52 Temperature 97.6 F L Temperature Source Oral Pulse Rate 84 Respiratory Rate 20 H Blood Pressure 157/53 H Blood Pressure Mean 87 Pulse Ox 98 Oxygen Delivery Method Room Air Weight Weight: 159 lb 13.362 oz Body Mass Index (BMI) 32.3 Physical Exam Const alert, oriented x3 and no apparent distress HEENT normocephalic and head/scalp atraumatic Resp normal respiratory effort Cardio regular rate GI soft to palpation; Negative for non-distended Palpation: tender RLQ; Negative for guarding Extremity no clubbing, cyanosis or edema Neuro CN's II-XII intact bilaterally Psych mental status grossly normal Results Lab / Micro Data Result Diagrams: 03/04/21 03:11 03/04/21 03:11 Labs: Laboratory Results - last 24 hr 03/04/21 03:11: WBC 14.2 H, RBC 4.37, Hgb 13.0, Hct 39.3, MCV 89.9, MCH 29.7, MCHC 33.1, RDW Std Deviation 41.0, RDW Coeff of Suzanne 12.4, Plt Count 327, MPV 9.7, Immature Gran % (Auto) 0.600, Neut % (Auto) 90.9 H, Lymph % (Auto) 5.6 L, [place] % (Auto) 2.4, Eos % (Auto) 0.1, Baso % (Auto) 0.4, Absolute Neuts (auto) 13.0 H, Absolute Lymphs (auto) 0.79 L, Nucleated RBC % 0 03/04/21 03:11: Sodium 136, Potassium 3.6, Chloride 100, Carbon Dioxide 26.0, Anion Gap 10, BUN 13, Creatinine 0.70, Estim Creat Clear Calc 92.93, Est GFR (MDRD) Af Amer 108, Est GFR (MDRD) Non-Af 89, BUN/Creatinine Ratio 18.5, Glucose 166 H, Calcium 9.1, Total Bilirubin 0.50, AST 17, ALT 24, Alkaline Phosphatase 138 H, Total Protein 7.5, Albumin 4.2, Globulin 3.3, Albumin/Globulin Ratio 1.3, Lipase 79 Radiology Impression Abdomen/Pelvis CT 03/04/21 02:57 IMPRESSION: 1. Appendicitis with no evidence of perforation. 2. Nonobstructing right nephrolithiasis. 3. Small hiatal hernia and other nonurgent findings within body of report. Individualized dose optimization techniques were used for this CT. at 0405 Reported and signed by: Scot Abdul MD Electronically Signed: Scot Abdul MD at 4:04 EDT Tel , Service support , ADDENDUM: 03/04/21 [id number] IMPRESSION: 1. Appendicitis with no evidence of perforation. 2. Nonobstructing right nephrolithiasis. 3. Small hiatal hernia and other nonurgent findings within body of report. Individualized dose optimization techniques were used for this CT. at 0405 Reported and signed by: Scot Abdul MD N.B. : The above Results were Read Back by Scot Abdul MD to kory ovalle MD, and understanding confirmed on 03/04/2021 04:18:22 (ET). Electronically Signed: Scot Abdul MD at 4:04 EDT Tel , Service support , Assessment & Plan Assessment/Plan (1) Acute appendicitis: PLAN: 1. Discussed procedure [ appendectomy, possible open, possible bowel resection along with the risk but not limited to bleeding, infection/abscess, injury to another organ (small bowel, colon, etc.), adhesion, hernia at incision sites, and anesthesia. Patient had no further questions this time. Alma Delia Lake M.D. Pager: [phone] [facility] [address] [place] [address], [address] [place] [address] Office: [phone]
[2021-03-04 05:07] LABS: Ketone-Dipstick 150 mg/dl (Negative)
--- NOTE | 2021-03-04 05:30 | APP_PTH ---
PATIENT: CANDIS HERNANDEZ LOC: MS3 U#:[id number] AGE/SX: 66/F ROOM: FL319 RE03/04/[address]: Dr. Alma Delia Lake MD : 1955 BED: 1 DIS: 03/04/2021 SPEC #: [id number] RECD: 03/04/21 07:45 STATUS: YVONNE NASREEN #: [id number] GASPER: 03/04/21 05:[address]: Alma Delia Lake DEPT: SURGICAL PATHOLOGY RECD BY: Norman Mclaughlin ENTERED: 03/04/21 11:07 SP TYPE: APPENDIX OTHR DR: Thomas Stearns, ALETA-Mayte Tissues: Appendix, NOS Procedures: Surgery Specimen Level III HEADER OPERATION: Laparoscopic appendectomy PRE-OP DIAGNOSIS: Acute appendicitis TISSUE SUBMITTED: Appendix MICROSCOPIC DIAGNOSIS Appendix, appendectomy: Acute appendicitis. See comment. AM:reymundo 03/05/2021 COMMENT The acute inflammation is predominantly eosinophilic in nature. Clinical correlation is suggested. MICROSCOPIC DESCRIPTION Slides are reviewed. GROSS DESCRIPTION Received in fixative is one container labeled with the patient's name and designated appendix. The specimen consists of an appendix measuring 5.5 cm in length and up to 1.5 cm in diameter. The attached periappendiceal adipose tissue measures up to 0.7 cm in width. No obvious perforation is identified. The lumen contains fecal material. No fecalith is identified. Assistant Store Manager Trainee sections are submitted in one cassette. / SJ:rg 03/04/21 TC:2 [facility]: [id number]
[2021-03-04] MEDS: Lactated Ringers 1,000 ML 100 ML IV ×2 (06:30→07:30)
--- NOTE | 2021-03-04 06:42 | PCM.OPRPT ---
Report of Operation Date of Procedure: 03/04/21 Pre-Operative Diagnosis: Acute appendicitis Post-Operative Diagnosis: Same Surgery/Procedure Performed:: Laparoscopic appendectomy Surgeon: Alma Delia Lake Type of Anesthesia: General/Supplemental Anesthesiologist: Lee Abreu Special Medications: Cipro/Flagyl given IV for acute appendicitis Specimen's removed: Appendix Estimated Blood Loss (mL): < 10 cc Description of Procedure: Indications: 66-year-old female presented to the ER with new right lower quadrant pain this morning but abdominal pain starting yesterday a.m. On workup she was found to have acute appendicitis on CT and a leukocytosis of 14.2. Patient was started on antibiotics in the ER for acute appendicitis-Cipro/Flagyl IV Description of the procedure: The patient was placed on operating table in supine position. General anesthesia was induced. A timeout was completed verifying correct patient, procedure, position and special equipment prior to beginning procedure. Abdomen was prepped and draped in usual sterile fashion. Incision was made in the natural skin line above the umbilicus with a 15 blade scalpel. The fascia was elevated and incised. Entry into the peritoneum was confirmed visually and no bowel was noted in the vicinity of the incision. The Mace trocar was placed under direct vision. Abdomen insufflated with a pressure of 12-15 mmHg. Patient tolerated insertion well. The scope was inserted and the abdomen inspected. No injuries from initial trocar placement were noted. Minimal amount of fluid was seen in the right lower quadrant. An direct visualization 2 -5 mm trocars were placed one above the symphysis pubis and below the hairline and one in the right upper quadrant. Care is taken to avoid injury to the bladder and inferior epigastric vessels. The table was placed in Trendelenburg position with the right side elevated. The appendix was grasped with atraumatic grasper and elevated. It was noted to be inflamed. A window was developed in the mesoappendix at the point between the base of the appendix and the cecum. An endoscopic 45 mm linear cutting stapler blue load was then used to divide and staple the base of the appendix. Enseal was used to divide the mesoappendix The appendix was withdrawn into the Mace trocar after being placed endoscopically retrieval bag. Appendix was sent to pathology. The appendiceal stump was then irrigated and hemostasis was assured. Fluid was suctioned no other pathology was identified. Secondary trochars were removed under direct visualization. No bleeding was noted trocar sites. The laparoscope withdrawn and the umbilical trocar removed. The abdomen was allowed to collapse. Local anesthesia of 30mL of 0.5% Marcaine was used at the incision sites. The umbilical trocar site was closed with the [id number] 0 Vicryl suture. The skin was closed up to clear sutures of 4-0 Monocryl and Steri-Strips. The patient was extubated. The patient tolerated the procedure well and was taken to the postanesthesia care unit in satisfactory condition. Complications None
--- NOTE | 2021-03-04 06:44 | DCINST_ITS ---
Discharge Instructions Diet Discharge Diet: Light diet - advance as tolerated Activity Discharge Activity: May Not Drive (while taking narcotic pain medications.) May shower in (days): 1 Lifting Restrictions: no lifting >20 lbs x 2 wks, no strenuous exercise for 4 wks Dressing / Incision Call your doctor if your incision/area has: Continuous Slow Oozing, Sudden Increased Bleeding, Increased Pain/ Swelling, Increased Redness, Foul Smelling Discharge and Swelling at the incision site Call your doctor if you observe: Fever of 101 or Higher Remove Dressing in: 2 days Cleanse incision/area with: Soap & Water Additional Dressing/Incision Instructions:: Steri-Strips will fall off in 7 to 10 days, if they do not fall off okay to remove after 10 days. Follow Up Care Please Follow Up With: Alma Delia Lake MD When: Call the office for a follow-up appointment 2 weeks; after 5 PM and on the weekends call [phone] with any concerns. Test Results: Test results from this visit will be discussed in further detail at your follow-up appointment, if applicable. Discharge Plan Admission Admit Date/Time: 03/04/21 05:50 Attending Provider: Alma Delia Lake Primary Care Provider: Thomas Stearns NP Discharge Orders/Prescriptions Prescriptions: New oxycodone-acetaminophen [Endocet] 5-325 mg tablet 1 - 2 tab PO Q6H PRN (Reason: pain) 5 Days Qty: 14 RF: 0 No Action simvastatin 20 MG tablet 20 mg PO QHS RF: 0 atenolol 50 MG tablet 50 mg PO QHS RF: 0 milk thistle 500 MG capsule 175 mg PO DAILY RF: 0 alendronate 70 MG tablet 70 mg PO QWEEK RF: 0 simethicone 125 MG capsule 250 mg PO PRN PRN (Reason: reflux) RF: 0 acetaminophen 500 MG tablet 500 - 1,000 mg PO Q6H PRN PRN (Reason: Pain Or Fever) RF: 0 biotin 10,000 MCG capsule 10,000 mcg PO DAILY RF: 0 diphenhydramine HCl 25 MG capsule 50 mg PO QHS RF: 0 ibuprofen 200 MG tablet 200 mg PO PRN PRN (Reason: Pain Or Fever) RF: 0 docusate sodium 100 MG capsule 100 mg PO TID RF: 0 esomeprazole magnesium 20 MG capsule,delayed release(DR/EC) 20 mg PO PRN PRN (Reason: reflux) RF: 0 cinnamon bark 500 MG capsule 1,500 mg PO DAILY RF: 0 calcium carbonate 1,177 MG tablet,chewable 1 tab PO PRN PRN (Reason: reflux) RF: 0 hydrochlorothiazide 12.5 MG tablet 12.5 mg PO DAILY RF: 0 cholecalciferol (vitamin D3) 2,000 UNIT capsule 2,000 unit PO DAILY RF: 0 calcium citrate-vitamin D3 1 EACH tablet 1 ea PO TID RF: 0 multivit,stress formula-zinc 1 EACH tablet 1 ea PO DAILY RF: 0 qabloctm-mpcm-hai8-C-janis-bosw 1 EACH tablet 1 ea PO BID RF: 0 vitamin D3-vitamin K2 (MK4) 1 EACH tablet 1 ea PO DAILY RF: 0 Referrals / Follow Up: Thomas Stearns NP, FILM COMPOSER-C [Primary Care Provider] - 2 Days Disposition Disposition (needs filled in before D/C Order can be placed): Home, Self Care
[2021-03-04] MEDS: Bupivacaine Mpf 0.5% 30 ML VIAL (06:47)
[2021-03-04 07:11] LABS: Bacteria RARE /hpf (None Seen); Squamous Epithelial Cells - UA 0-5 SEEN /hpf (5-10); White Blood Cells 0-5 SEEN /hpf (0-5)
--- NOTE | 2021-03-04 08:26 | PCS.PANDOC ---
PANDEMIC DOCUMENTATION INITIATED: Date: 02/18/2021 Time: 190
--- NOTE | 2021-03-04 10:22 | NURSING ---
new opsite with folded 2x2 gauze applied to umbilical area/steri strips. old dressing removed d/t leaking serous drainage.
[2021-03-04] MEDS: 0.9% Normal Saline 1,000 ML 100 ML IV (10:24)
[2021-03-04] MEDS: hydroCHLOROthiazide 12.5mg 12.5 MG PO (10:24)
[2021-03-04] MEDS: Acetaminophen 325 MG Tablet 650 MG PO (10:24)
--- NOTE | 2021-03-04 10:51 | PHA.DC.MC ---
Pharmacy Service has performed discharge medication reconciliation and counseling for this patient. 1. OXYCODONE/ACETAMINOPHEN 5/325MG 1-2T PO Q6H PRN PAIN X 5 DAYS The patient's discharge medication list was reviewed for discrepancies and discrepancies were resolved. Patient takes acetaminophen 500-1000mg at bedtime. Advised patient to hold bedtime Tylenol while taking Percocet. Patient voiced understanding. Home Medications atenolol 50 mg PO QHS 08/30/18 simvastatin 20 mg PO QHS 08/30/18 acetaminophen 500 - 1,000 mg PO QHS 05/02/19 alendronate 70 mg PO QWEEK 05/02/19 biotin 10,000 mcg PO DAILY 05/02/19 calcium carbonate 1 tab PO PRN PRN 05/02/19 calcium citrate-vitamin D3 1 ea PO TID 05/02/19 cholecalciferol (vitamin D3) 2,000 unit PO DAILY 05/02/19 cinnamon bark 1,500 mg PO DAILY 05/02/19 diphenhydramine HCl 50 mg PO QHS 05/02/19 esomeprazole magnesium 20 mg PO PRN PRN 05/02/19 oswnkpgv-xssr-[id number]-janis-bosw 1 ea PO BID 05/02/19 hydrochlorothiazide 12.5 mg PO DAILY 05/02/19 ibuprofen 200 mg PO BID PRN PRN 05/02/19 milk thistle 175 mg PO DAILY 05/02/19 multivit,stress formula-zinc 1 ea PO DAILY 05/02/19 simethicone 250 mg PO BID PRN PRN 05/02/19 vitamin D3-vitamin K2 (MK4) 1 ea PO DAILY 05/02/19 oxycodone-acetaminophen [Endocet] 1 - 2 tab PO Q6H PRN 5 Days #14 tab 03/04/21 The patient was counseled on the following discharge medications and changes in medications for homegoing were reviewed. The Reason for Use, instructions for use, and potential side effects were reviewed for all new medications. The patient's questions regarding all of their medications were answered. The patient was able to verbally demonstrate an understanding of their discharge medications.
[2021-03-04] MEDS: oxyCODONE 5 MG Tablet PO (11:51)
== END 2021-03-04 16:14 | disposition home or self-care (01) ==
LOC: ED 05:54 → MS3 05:55
PROVIDERS: Admitting Provider Surgery; Emergency Provider Emergency Medicine; PCP Nurse Practitioner Family; Referring Provider Surgery; Visit Provider Surgery
PROC: 0DTJ4ZZ Resection of Appendix, Percutaneous Endoscopic Approach (ICD-10-PCS; CPT 44970; principal; 2021-03-04 05:30)
DX: K35.80 Unspecified acute appendicitis (principal); I10 Essential (primary) hypertension; E78.5 Hyperlipidemia, unspecified; Z79.899 Other long term (current) drug therapy; Z87.891 Personal history of nicotine dependence
CPT/HCPCS: 44970; 74176; 80053; 81001; 83690; 85025; 87426; 88304; 93005; 96361; 96374; 96375; 96376; 99284; 99406; J7030; J7120; A4216; C1760; J0744; J2405